=== PATIENT | female | born 2000 | race Caucasian/White ===

== ENCOUNTER 2021-11-08 10:46 | Outpatient (REF) | payer OTHER, SELFPAY ==
[2021-11-08 12:36] LABS: Binax Internal Control QC Valid; Binax Now Covid-19 Ag Negative (Negative)
== END 2021-11-08 10:47 | disposition home or self-care (01) ==
LOC: HO.LAB 10:46
PROVIDERS: Visit Provider Internal Medicine
DX: Z20.822 Contact with and (suspected) exposure to COVID-19 (principal)
CPT/HCPCS: 36415; C9803